=== PATIENT | male | born 1980 | race Caucasian/White ===

== ENCOUNTER 2017-12-26 12:17 | Emergency (ER) | payer OTHER ==
[2017-12-26] MEDS ORDERED: Ketorolac Tromethamine 30 MG/ML VIAL ONE (13:06)
[2017-12-26] MEDS ORDERED: Ondansetron HCl/PF 4 MG/2 ML Vial ONE (13:06)
[2017-12-26 13:20] LABS: Hemoglobin 7.5 g/dL (14.0-18.0); Mean Corpuscular HGB CONC 33.7 g/dL (32.0-36.0); Mean Corpuscular Hemoglobin 27.2 pg (27.0-31.0); Mean Corpuscular Volume 80.7 fl (80.0-94.0); Mean Platelet Volume 6.5 fL (7.4-10.4); Platelet Count 132 thou/uL (130-400); Red Blood Cell (RBC) Count 2.75 mill/uL (4.70-6.10); White Blood Cell (WBC) Count 0.5 thou/uL (4.8-10.8)
[2017-12-26 13:21] LABS: ALT (SGPT) 24 U/L (8-55); AST (SGOT) 15 U/L (5-34); Albumin 3.2 g/dL (3.5-5.0); Alkaline Phosphatase 132 U/L (40-150); Anion Gap 16 mmol/L (10-20); BUN (Urea Nitrogen) 17 mg/dL (8.9-20.6); Bilirubin, Total 0.6 mg/dL (0.2-1.2); Calc. Creatinine Clearance 0 mL/min (70-130); Calcium 8.7 mg/dL (7.8-10.44); Carbon Dioxide 24 mmol/L (22-29); Chloride 92 mmol/L (98-107); Estimated GFR-MDRD Greater than 90; Globulin 2.6 g/dL (2.4-3.5); Glucose 106 mg/dL (70-105); Potassium 3.8 mmol/L (3.5-5.1); Protein, Total 5.8 g/dL (6.0-8.3); Sodium 128 mmol/L (136-145)
[2017-12-26 13:32] LABS: Band 3 % (5-11); Eosinophils 1 % (0-10); Lymphocytes 12 % (21-51); MDiff Complete? YES; Monocytes 1 % (0-10); Neutrophil 75 % (42-75); Reactive Lymphocytes 8 % (0-10)
[2017-12-26] MEDS ORDERED: Pantoprazole 40 MG VIAL ONE (14:58)
--- NOTE | 2017-12-26 15:03 | CT ---
CT ANGIOGRAM OF THE CHEST WITH CONTRAST: Date: 12-26-[address] of the chest was done after a bolus of IV contrast. Axial slices were acquired then coron al, sagittal, and oblique coronal reformations through the pulmonary arteries were obtained. The jose ent has known lung cancer. FINDINGS: There is a large bilobed mass in the left upper lobe with somewhat smooth borders. The larger part of the mass measures about 4 x 3 cm. The smaller part is about 2.7 cm in diameter. There is massive med iastinal adenopathy in the superior, anterior, and middle mediastinum. A stent appears to have been p laced into the lower trachea that extends to the bifurcation. The patient's esophagus is quite thick throughout. I would wonder about the possibility of esophagitis knowing that he has had radiation the rapy. Regarding the pulmonary arteries, they were well opacified and showed no internal defects to suggest emboli. There is no sign of aortic dissection or aneurysm. No coronary calcifications were appreciate d. The lungs have the appearance suggestive of emphysematous change, even though the patient is quite yo anthony. There are several patchy opacifies throughout the left lung, upper and lower lobe, that are pres umably small infiltrates. Some similar but lesser findings are present in the dependent portions of t he right lower lobe. Scans went a short ways into the upper abdomen. The visible structures here were unremarkable. IMPRESSION: 1. Large left upper lobe mass with massive mediastinal adenopathy. 2. Patchy infiltrates throughout the left lung. Infection presumed. 3. Marked thickening of the esophagus. Esophagitis, perhaps from radiation therapy, should be conside red. 4. Emphysematous appearing changes in the lung parenchyma. 5. No evidence of pulmonary embolism. Findings discussed with Dr. Heredia at 1347 on 12-26-17. POS: HOME
[2017-12-26] MEDS ORDERED: Morphine 4 MG/ML Carpuject ONE (15:31)
== END 2017-12-26 17:10 | disposition short-term general hospital (02) ==
LOC: BURERS 12:17
DX: J18.9 Pneumonia, unspecified organism (principal); C34.90 Malignant neoplasm of unspecified part of unspecified bronchus or lung; B20 Human immunodeficiency virus [HIV] disease; Z87.891 Personal history of nicotine dependence; Z79.899 Other long term (current) drug therapy
CPT/HCPCS: 36415; 71260; 80053; 85025; 87040; 96361; 96365; 96366; 96375; C9113; J1885; J2270; J2405; J3370